=== PATIENT | female | born 1945 | race Caucasian/White ===

== ENCOUNTER 2025-08-19 11:25 | Emergency (ER) | payer MEDICARE, BC, SELFPAY ==
[2025-08-19] VITALS (12 sets, daily range): BP systolic 137–153; BP diastolic 71–83; PULSE 80–99; RESP 16–18; TEMP 37; O2SAT 90–98; BMI 29.1
--- NOTE | 2025-08-19 12:03 | CRLHL7_ITS ---
For Patients: As a result of the Century Cures Act, medical imaging exams and procedure reports are released immediately into your electronic medical record. You may view this report before your referring provider. If you have questions, please contact your health care provider. INDICATION: Fall, right flank pain. TECHNIQUE: CT abdomen and pelvis acquired with 76 cc Isovue 370 IV contrast. COMPARISON: None. FINDINGS: Lower chest: Scattered atelectasis. Tiny hiatal hernia. Liver: Unremarkable. Normal in size and attenuation. No suspicious masses. Gallbladder and bile ducts: Cholelithiasis without acute cholecystitis. Pancreas: Unremarkable. No mass or inflammation. Spleen: Unremarkable. Normal in size. No masses. Adrenal glands: Unremarkable. No nodules. Kidneys: Large simple right renal cyst. Additional tiny cortical hypodensities, too small to characterize.. No suspicious masses, stones, or hydronephrosis. GI tract: Colonic diverticulosis without diverticulitis. Normal in caliber. No sign of mass or inflammation. Normal appendix. Vasculature: Aortoiliac arterial calcifications. Abdominal aorta is normal in caliber. Mesenteric arteries are patent. Lymph nodes: No lymphadenopathy. Peritoneum/Abdominal Wall: Tiny fat containing umbilical hernia.. No sign of mass or infiltration. No free air or significant free fluid. Pelvis: Hysterectomy. Bones: Scoliotic curvature. Degenerative changes. IMPRESSION: No acute intra-abdominal/pelvic abnormality. Cholelithiasis without acute cholecystitis. Colonic diverticulosis without diverticulitis. Please note that all CT scans at this facility use dose modulation, iterative reconstruction, and/or weight-based dosing when appropriate to reduce radiation dose to as low as reasonably achievable. Dictated by Ector Russell MD @ 08/19/2025 1:16:58 PM (Electronically Signed)
[2025-08-19 12:39] LABS: Creatinine, Point-of-Care* 1.0 mg/dl (0.6-1.3)
[2025-08-19] MEDS: MORPHINE 4 MG/ML INJ IVP (12:43)
--- NOTE | 2025-08-19 13:45 | ED.FALL ---
HPI - Fall General Date Seen: 08/19/25 Chief Complaint: Fall/Minor Trauma Stated Complaint: Back pain Time Seen by Provider: 08/19/25 11:45 Source: patient and EMS Mode of arrival: EMS Limitations: no limitations History of Present Illness HPI Narrative: Patient is an 80-year-old female with a history of chronic back pain, hypertension, hyperlipidemia presenting to emergency department for right flank pain. This occurred after a fall. She fell 2 days ago and since then has been feeling sore all over. Denies hitting her head. Was given fentanyl via EMS. Assist in here by her clinic after she went in there for evaluation. Denies any urinary retention. Denies saddle anesthesia. Pain does not radiate anywhere. Denies midline back pain. States this is the same area she gets pain in the past and recently got an injection for pain. Denies any other injuries. No other concerns noted. Related Data Home Medications ?Medication ?Instructions ?Recorded ?Confirmed amlodipine 10 mg tablet 10 mg PO DAILY 08/19/25 08/19/25 hydrochlorothiazide 25 mg tablet 25 mg PO DAILY 08/19/25 08/19/25 lisinopril 10 mg tablet 10 mg PO DAILY 08/19/25 08/19/25 lovastatin 20 mg tablet 20 mg PO DAILY 08/19/25 08/19/25 Allergies Allergy/AdvReac Type Severity Reaction Status Date / Time No Known Drug Allergies Allergy Verified 08/19/25 13:12 Review of Systems Narrative: Pertinent systems reviewed and were negative unless stated in HPI Exam Narrative: Exam Narrative: Const: Well-nourished, Well-developed, in moderate distress Eyes: PERRL, no conjunctival injection, and symmetrical lids HENT: Atraumatic external nose and ears. Moist mucous membranes. Neck: Symmetric, trachea midline, No thyromegaly. CVS: RRR, No murmurs or gallops. Peripheral pulses 2+ and equal in all extremities RESP: Unlabored respiratory effort. Clear to auscultation bilaterally. GI: Nontender/Nondistended, No rebound or guarding. MSK:Extremities w/o deformity, Normal Active ROM, right low flank tenderness, no midline tenderness noted. No pelvic or hip tenderness noted. No other injuries noted on exam. Skin: Warm, Dry. No rashes or lesions. Neuro: Normal Muscle tone, No focal neurological deficits. Psych: Awake, Alert, & Oriented x3. Appropriate mood and affect. Const: Vital Signs, click to edit/add: Vital Signs - 24 hr 08/19/25 11:36 Temperature 98.6 F Pulse Rate [Pulse Oximeter] 82 Respiratory Rate 18 Blood Pressure [Ri ght Upper Arm] 153/83 H Pulse Oximetry 98 Oxygen Delivery Me thod Room Air Course Vital Signs Vital signs: Initial Vital Signs Temperature 98.6 F 08/19/25 11:36 Temperature Source Temporal Artery Scan 08/19/25 11:36 Pulse Rate 82 08/19/25 11:36 Respiratory Rate 18 08/19/25 11:36 Blood Pressure 153/83 H 08/19/25 11:36 Blood Pressure Mean 106 H 08/19/25 11:36 Pulse Oximetry 98 08/19/25 11:36 Oxygen Delivery Method Room Air 08/19/25 11:36 Vital Signs Temperature 98.6 F 08/19/25 11:36 Pulse Rate 82 08/19/25 11:36 Respiratory Rate 18 08/19/25 11:36 Blood Pressure 153/83 H 08/19/25 11:36 Pulse Oximetry 98 08/19/25 11:36 Oxygen Delivery Method Room Air 08/19/25 11:36 Temperature 98.6 F 08/19/25 11:36 Pulse Rate 82 08/19/25 11:36 Respiratory Rate 18 08/19/25 11:36 Blood Pressure 153/83 H 08/19/25 11:36 Pulse Oximetry 98 08/19/25 11:36 Oxygen Delivery Method Room Air 08/19/25 11:36 Medications Administered Medications: Discontinued Medications Generic Name Dose Route Start Last Admin Trade Name Derick PRN Reason Stop Dose Admin Morphine Sulfate 4 mg 08/19/25 12:15 08/19/25 12:43 Morphine 4 Mg/Ml Inj IVP 08/19/25 12:16 4 mg ONCE ONE Administration MDM - Fall MDM Narrative Medical decision making narrative: Patient is an 80-year-old female presenting to emergency department for back pain after a fall. She states this is where she gets her back pain in the past. This is much more severe she states. I do not believe lab work will be beneficial what we will do a point of care creatinine. I do believe is CT abdomen pelvis with contrast would help. This will help show any bony abnormalities or see if she has any intra-abdominal or retroperitoneal injuries. No bruising is noted on exam though. Morphine given for pain CT scan interpreted by myself and the radiologist independently showed no acute concerning abnormalities. As there is no midline pain I do not believe a dedicated lumbar CT is indicated. Based on location of pain it is a muscle strain. She will be discharged. Will be provided oxycodone for pain control but was given instructions to be very careful when she takes the oxycodone as it does increase her fall risk. Her and her friend state they understand and agree with this plan. Lab Data Labs: Lab Results 08/19/25 Range/Units 12:03 POC Creatinine 1.0 (0.6-1.3) mg/dl Imaging Data CT scan abdomen and pelvis: Attestation: I have reviewed the pertinent imaging results. Radiologist's impression: No acute intra-abdominal/pelvic abnormality. Cholelithiasis without acute cholecystitis. Colonic diverticulosis without diverticulitis. Please note that all CT scans at this facility use dose modulation, iterative reconstruction, and/or weight-based dosing when appropriate to reduce radiation dose to as low as reasonably achievable. Dictated by Ector Russell MD @ 08/19/2025 1:16:58 PM Discharge Plan Discharge Clinical Impression: Back strain Qualifiers: Encounter type: initial encounter Qualified Code(s): S39.012A - Strain of muscle, fascia and tendon of lower back, initial encounter Patient Disposition: Home, Self-Care Condition: Stable Instructions: Back Pain (ED) Additional Instructions: Take Tylenol as needed for pain. If that is not helping use the oxycodone. You can pick it up via instymeds. Ice the area for 20 minutes 3 times a day. If pain is not improving follow-up with your primary care provider. Return to emergency department for new or worsening symptoms Prescriptions: No Action amlodipine 10 mg tablet 10 mg PO DAILY lisinopril 10 mg tablet 10 mg PO DAILY hydrochlorothiazide 25 mg tablet 25 mg PO DAILY lovastatin 20 mg tablet 20 mg PO DAILY Follow Up/Referrals: Gail Montes De Oca DO [Primary Care Provider, Family Practice] Stand Alone Forms: [employer] Info Instructions
== END 2025-08-19 14:39 | disposition home or self-care (01) ==
PROVIDERS: Emergency Provider Student in an Organized Health Care Education/Training Program; PCP Family Medicine
DX: S39.012A Strain of muscle, fascia and tendon of lower back, initial encounter (principal); W19.XXXA Unspecified fall, initial encounter
CPT/HCPCS: 36415; 74177; 82565; 94761; 96374; 99283; 99284; 99285; J2270; Q9967